=== PATIENT | female | born 1955 | race Two or more races ===

== ENCOUNTER 2023-07-26 15:03 | Emergency (ER) | payer MEDICAID, MEDICARE ==
[~2023-07-26] VITALS: Ht 154.9 cm; Wt 48.4 kg
[2023-07-26] MEDS ORDERED: SILVER SULFADIAZINE 1 % TOPICAL CREAM 50GM TOP ONE (15:15)
[2023-07-26] MEDS ORDERED: SILV1CRE82 TOP (15:23)
[2023-07-26 17:31] VITALS: BP 97/63; PULSE 68; RESP 16; TEMP 97.4; O2SAT 96
== END 2023-07-26 17:33 | disposition home or self-care (01) ==
LOC: ER 15:03
DX: T25.111A Burn of first degree of right ankle, initial encounter (principal); I10 Essential (primary) hypertension; E11.9 Type 2 diabetes mellitus without complications; Z90.710 Acquired absence of both cervix and uterus; X19.XXXA Contact with other heat and hot substances, initial encounter; Y93.89 Activity, other specified; Y92.89 Other specified places as the place of occurrence of the external cause; Y99.8 Other external cause status
CPT/HCPCS: 16000

== ENCOUNTER 2024-05-16 20:35 | Emergency (ER) | payer MEDICAID, MEDICARE ==
[~2024-05-16] VITALS: Ht 154.9 cm; Wt 49.2 kg
[~2024-05-16 20:35] MED LIST: SILV1CRE82 TOP
[2024-05-17] MEDS: ACETAMINOPHEN 325 MG TAB PO ONE (04:30)
[2024-05-17 04:36] VITALS: BP 134/88; PULSE 84; RESP 18; TEMP 98.2; O2SAT 99
== END 2024-05-17 04:36 | disposition home or self-care (01) ==
LOC: ER 20:35
DX: S53.401A Unspecified sprain of right elbow, initial encounter (principal); E11.9 Type 2 diabetes mellitus without complications; I10 Essential (primary) hypertension; Z90.710 Acquired absence of both cervix and uterus; W18.30XA Fall on same level, unspecified, initial encounter; Y93.89 Activity, other specified; Y92.89 Other specified places as the place of occurrence of the external cause; Y99.8 Other external cause status
CPT/HCPCS: 73060; 73090; 93005

== ENCOUNTER 2025-05-20 12:19 | Emergency (ER) | payer MEDICARE, MEDICAID ==
[~2025-05-20] VITALS: Ht 154.9 cm; Wt 47.2 kg
[2025-05-20 14:34] LABS: Urine Protein, UAD Negative (Negative)
--- NOTE | 2025-05-20 15:14 | ED.PDOC ---
General HPI Comments 69 y.o female presents to the ED for a chief complaint of dysuria associated with frequency, urgency and lower abdominal discomfort that started yesterday. Patient reports getting up at night multiple times to urinate in which she described as a burning and pressure pain. She denies any hematuria, fever, chills, nausea or vomiting. Chief Complaint: Urinary Time Seen by MD: 15:09 Primary Care Provider: OOA Reviewed notes: Nurses Notes, Medications, Allergies Allergies: Coded Allergies: NO KNOWN ALLERGIES (Unverified , 07/26/23) Home Meds Active Scripts Silver Sulfadiazine (Silvadene) 1 % Cre, 1 APPLIC TOP DAILY, #50 GRAMS Prov:FERNIE ORLANDO PAC 07/26/23 Information Source: Patient Mode of Arrival: Ambulatory Severity: Moderate Timing: Days (1) Duration: Since onset Onset: Spontaneous Symptoms: Dysuria History of: None Location: None Modifying factors: None associated signs and symptoms: Dysuria Past Medical History PAST MEDICAL HISTORY: DM, HTN Surgical History: Hysterectomy MATERIALS MANAGER History: No Pertinent MATERIALS MANAGER History Family History Family History: Reviewed,noncontributory to illness, No family hx of Cancer, No family hx of DM, No family hx of Heart kim, No family hx of HTN, No family hx ofKidney kim, No family hx of Liver kim, No family hx of Lung kim, No family hx of Stroke Social History Smoker: Non-Smoker Alcohol: Denies ETOH Use Drugs: Denies Drug Use Lives In: Home Constitutional: denies: chills, diaphoresis, fatigue, fever, malaise, sweats, weakness, others EENTM: denies: blurred vision, double vision, ear bleeding, ear discharge, ear drainage, ear pain, ear ringing, eye pain, eye redness, hearing loss, mouth pain, mouth swelling, nasal discharge, nose bleeding, nose congestion, nose pain, photophobia, tearing, throat pain, throat swelling, voice changes, others Respiratory: denies: cough, hemoptysis, orthopnea, SOB at rest, shortness of breath, SOB with excertion, stridor, wheezing, others Cardiovascular: denies: chest pain, dizzy spells, diaphoresis, Dyspnea on exertion, edema, irregular heart beat, left arm pain, lightheadedness, palpitations, PND, syncope, others Gastrointestinal: denies: abdomen distended, abdominal pain, blood streaked bowels, constipated, diarrhea, dysphagia, difficulty swallowing, hematemesis, melena, nausea, poor appetite, poor fluid intake, rectal bleeding, rectal pain, vomiting, others Genitourinary: reports: dysuria, pain; denies: abnormal vagina bleeding, burning, dyspareunia, flank pain, frequency, hematuria, incontinence, , vagina discharge, urgency, others Neurological: denies: dizziness, fainting, headache, left sided numbness, left sided weakness, numbness, paresthesia, pre-existing deficit, right sided numbness, right sided weakness, seizure, speech problems, tingling, tremors, weakness, others Musculoskeletal: denies: back pain, gout, joint pain, joint swelling, muscle pain, muscle stiffness, neck pain, others Integumetry: denies: bruises, change in color, change in hair/nails, dryness, laceration, lesions, lumps, rash, wounds, others Allergic/Immunocompromised: denies: Difficulty Healing, Frequent Infections, Hives, Itching, others Hematologic/Lymphatic: denies: anemia, blood clots, easy bleeding, easy bruising, swollen glands, others Endocrine: denies: excessive hunger, excessive sweating, excessive thirst, excessive urination, flushing, intolerance to cold, intolerance to heat, unexplained weight gain, unexplained weight loss, others Psychiatric: denies: anxiety, bipolar disorder, depression, hopeless, panic disorder, schizophrenia, sleepless, suicidal, others All Other Systems: Reviewed and Negative Physical Exam General Appearance: Mild Distress HEENT: Normal ENT Inspection, PERRL/EOMI Neck: Full Range of Motion, Non-Tender, Normal, Normal Inspection Respiratory: Chest Non-Tender, Lungs Clear, No Accessory Muscle Use, No Respiratory Distress, Normal Breath Sounds Cardiovascular: No Edema, No JVD, No Murmur, No Gallop, Normal Peripheral Pulses, Regular Rate/Rhythm Breast Exam: Deferred Gastrointestinal: No Organomegaly, Non Tender, No Pulsatile Mass, Normal Bowel Sounds, Soft, Suprapubic, Tenderness Genitalia: Deferred Pelvic: Deferred Rectal: Black stool Extremities: No calf tenderness, Normal capillary refill, Normal inspection, Normal range of motion, Non-tender, No pedal edema Neurologic: Alert, belt weaver II-XII nml as Tested, No Motor Deficits, Normal Affect, Normal Mood, No Sensory Deficits Cerebellar Function: Normal Reflexes: Normal Skin: Dry, Normal Color, Warm Peripheral Pulses: 1+ carotid (R), 1+ carotid (L) Lymphatic: No Adenopathy Was a procedure done? Was a procedure done?: No Differential Diagnosis Kidney stone (Female): N/A Kidney stone (Male): N/A Penile/Scrotal: N/A Urinary Problem (Male): N/A Urinary Problem (Female): Urolithiasis, UTI, Vaginitis X-Ray, Labs, Meds, VS Vital Signs Date Time Temp Pulse Resp B/P (MAP) Pulse Ox O2 Delivery O2 Flow Rate FiO2 05/20/25 12:21 98.4 83 18 188/96 98 98.4 Lab Test 05/20/25 12:33 Range/Units Urine Color Dark-yellow Yellow Urine Clarity Clear Clear Urine pH 7.0 5.0-9.0 Urine Specific Rogers 1.012 1.001-1.035 Urine Protein Negative Negative Urine Ketones Negative Negative Urine Blood 1+ H Negative /uL Urine Nitrite 2+ H Negative Urine Bilirubin 1+ H Negative Urine Urobilinogen 4 H Negative mg/dL Urine Leukocyte Esterase 2+ Negative /uL Urine RBC 8 0 - 4 /hpf Urine Microscopic WBC 45 H 0-5 /HPF Urine Squamous Epithelial Cells Few <5 /hpf Urine Bacteria Few H None Seen /hpf Urine Glucose 3+ H Normal mg/dL X-Ray, Labs, Meds, VS Comment Course in the [employer] the patient came in complaining of dysuria frequency and hematuria and also low abdominal pain Urine shows 1+ blood 2+ nitrites 2+ leukocyte esterase 3+ leuk sugar and bacteria Patient will be discharged home to follow up with her PCP Time of 1ST Reevaluation: 15:14 Reevaluation 1ST: Unchanged Time of 2ND Reevaluation: 15:17 Reevaluation 2ND: Unchanged Consultation: PCP Patient Education/Counseling: Diagnosis, Treatment, Prognosis, Need For Follow Up Family Education/Counseling: Diagnosis, Treatment, Prognosis, Need For Follow Up, No Family Present SEPSIS Sepsis Screen Date sepsis recognized/suspect: May 20, 2025 Time Sepsis recognized/suspect: 1221 Recent Procedure: No On Antibiotic Therapy: No Respiratory Rate >20: No Heart Rate >90: No Temp<36 C (96.8 F) or >38.3 C: No SBP <90 or MAP <65 mmHG: No New Acute Mental Status Change: No Is the patient on CPAP, BIPAP,: No Vital Signs Date Time Temp Pulse Resp B/P (MAP) Pulse Ox O2 Delivery O2 Flow Rate FiO2 05/20/25 12:21 98.4 83 18 188/96 98 98.4 Departure 1 Departure Time of Disposition: 15:17 Impression: Primary Impression: UTI (urinary tract infection) Qualified Codes: N30.01 - Acute cystitis with hematuria Disposition: HOME / SELF CARE / HOMELESS Condition: Fair Additional Instructions: Push fluids and follow up with your PCP e-Prescriptions Phenazopyridine HCl (Phenazopyridine Hydrochlo) 200 Mg Tab 200 MG PO TID for 5 Days, #15 TAB Prov: ARLENE CONNELLY MD 05/20/25 Ciprofloxacin Hcl (Cipro) 500 Mg Tab 1 TAB PO BID for 10 Days, #20 TAB Prov: ARLENE CONNELLY MD 05/20/25 Discharged With: Self Critical Care Note Critical Care Time?: No Stability Stability form required: No I personally scribed for ARLENE CONNELLY MD ([email or web address]) on 05/20/25 at 15:14. Electronically submitted by Nandini Zelaya ([facility]). ARLENE CONNELLY MD May 20, 2025 15:14
[2025-05-20 15:17] VITALS: BP 176/89; PULSE 81; RESP 16; TEMP 97.5; O2SAT 99
[2025-05-20] MEDS ORDERED: PHEN-922 PO (15:20)
[2025-05-20] MEDS ORDERED: CIPR-173 PO (15:20)
== END 2025-05-20 15:33 | disposition home or self-care (01) ==
LOC: ER 12:19
DX: N39.0 Urinary tract infection, site not specified (principal); E11.9 Type 2 diabetes mellitus without complications; I10 Essential (primary) hypertension; Z90.710 Acquired absence of both cervix and uterus
CPT/HCPCS: 81001